=== PATIENT | female | born 1950 | race Hispanic/Latino ===

== ENCOUNTER 2022-07-23 08:10 | Outpatient (CLI) | payer MEDICARE | END 2022-07-23 08:11 | disposition home or self-care (01) | LOC: CSHMAMMO 08:10 | PROVIDERS: ATTEND Family Medicine | DX: Z12.31 Encounter for screening mammogram for malignant neoplasm of breast (principal); Z91.89 Other specified personal risk factors, not elsewhere classified | CPT/HCPCS: 77063; 77067 ==

== ENCOUNTER 2023-03-25 14:27 | Outpatient (CLI) | payer OTHER | END 2023-03-25 14:28 | disposition home or self-care (01) | LOC: CSHMRI 14:27 | PROVIDERS: ATTEND Orthopaedic Surgery | DX: M23.91 Unspecified internal derangement of right knee (principal); S83.231A Complex tear of medial meniscus, current injury, right knee, initial encounter; M23.300 Other meniscus derangements, unspecified lateral meniscus, right knee; M94.8X6 Other specified disorders of cartilage, lower leg; M25.461 Effusion, right knee ==